=== PATIENT | male | born 1950 | race Hispanic/Latino ===

== ENCOUNTER 2018-08-15 06:40 | Day surgery (SDC) | payer MEDICARE ==
[2018-08-15 07:37] LABS: EOSINOPHILS % (AUTO) 7.3 % (0.0-8.0); HEMATOCRIT 31.2 % (42-54); LYMPHOCYTES % (AUTO) 27.5 % (21.0-51.0); MEAN CORPUSCULAR HEMOGLOBIN 32.4 pg (27.0-33.0); MEAN CORPUSCULAR HGB CONC 33.5 g/dL (32.0-36.0); MEAN CORPUSCULAR VOLUME 96.9 fL (79-99); MONOCYTES % (AUTO) 9.8 % (3.0-13.0); NEUTROPHILS % (AUTO) 53.4 % (40.0-77.0); PLATELET COUNT (AUTO) 164 K/uL (130-400); RED BLOOD CELL COUNT(AUTO) 3.22 MIL/uL (4.50-6.20); RED CELL DISTRIBUTION WIDTH 14.4 % (11.0-15.5); WHITE BLOOD COUNT (AUTO) 5.8 K/uL (4.8-10.8)
[2018-08-15 07:38] VITALS: BP 155/84
[2018-08-15 07:47] LABS: INR 0.99 (0.85-1.15); PROTHROMBIN TIME 10.4 SEC (9.6-11.6)
[2018-08-15 07:50] LABS: BILIRUBIN,TOTAL 0.4 mg/dL (0.2-1.0); POTASSIUM 5.5 mmol/L (3.5-5.1); TOTAL PROTEIN, SERUM 7.6 g/dL (6.0-8.3)
[2018-08-15] MEDS ORDERED: LIDOCAINE HCL 1% MDV 50ML VIAL ONE (07:52)
[2018-08-15 07:54] LABS: CREATININE 10.9 mg/dL (0.5-1.5)
[2018-08-15] MEDS ORDERED: CEFAZOLIN SODIUM 1 GM VIAL ONE (08:47)
[2018-08-15 09:25] VITALS: BP 150/82
[2018-08-15 09:40] VITALS: BP 148/85
[2018-08-15 09:55] VITALS: BP 136/91
[2018-08-15 10:13] VITALS: BP 167/83
[2018-08-15 10:30] VITALS: BP 171/81
== END 2018-08-15 11:10 | disposition home or self-care (01) ==
LOC: DAH 06:40
PROVIDERS: ATTEND Internal Medicine Nephrology
DX: T80.218A Other infection due to central venous catheter, initial encounter (principal); I12.0 Hypertensive chronic kidney disease with stage 5 chronic kidney disease or end stage renal disease; E11.22 Type 2 diabetes mellitus with diabetic chronic kidney disease; N18.6 End stage renal disease; E66.9 Obesity, unspecified; F17.210 Nicotine dependence, cigarettes, uncomplicated; Z95.1 Presence of aortocoronary bypass graft; Z99.2 Dependence on renal dialysis; Z79.82 Long term (current) use of aspirin; Z79.899 Other long term (current) drug therapy
CPT/HCPCS: 36415; 36581; 77001; 80053; 82948 ×3; 85025; 85610; A4606; C1750; J0690; J1644 ×2; J3490